=== PATIENT | male | born 1945 | race Caucasian/White ===

== ENCOUNTER 2024-12-07 09:55 | Day surgery (SDC) | payer OTHER, MEDICARE, BC ==
[2024-12-03 13:25] LABS: BASOPHILS % (AUTO) 0.7 % (0-1); EOSINOPHILS # (AUTO) 0.2 X10'3 (0-0.9); EOSINOPHILS % (AUTO) 2.8 % (0-6); HEMATOCRIT 47.9 % (42.0-52.0); HEMOGLOBIN 16.1 g/dl (14.0-17.9); LYMPHOCYTES # (AUTO) 0.9 X10'3 (1.1-4.8); MEAN CORPUSCULAR HEMOGLOBIN 32.2 PG (27.0-31.0); MEAN CORPUSCULAR HGB CONC 33.6 g/dL (33.0-36.5); MEAN CORPUSCULAR VOLUME 95.7 FL (78-98); MEAN PLATELET VOLUME 8.3 FL (7.4-10.4); MONOCYTES # (AUTO) 0.6 X10'3 (0-0.9); NEUTROPHILS % (AUTO) 74.5 % (42-75); PLATELET COUNT 175 X10'3 (140-440); RED CELL DISTRIBUTION WIDTH 14.4 % (11.5-14.5); WHITE BLOOD COUNT 6.7 X10'3 (4.5-11.0)
[2024-12-03 13:27] LABS: APTT 27 SECONDS (22-32); PROTHROMBIN TIME 10.8 SECONDS (9.0-12.0)
[2024-12-03 13:29] LABS: ALBUMIN 4.1 G/DL (3.4-5.0); ANION GAP 7 (8-16); BLOOD UREA NITROGEN 17 MG/DL (7-18); BUN/CREATININE RATIO 15.9 (10.0-20.0); CHLORIDE 108 MMOL/L (99-107); CHOL/HDL RATIO 1.6 (0.00-4.99); CHOLESTEROL 87 MG/DL (0-200); CREATININE 1.07 MG/DL (0.60-1.10); GLUCOSE 95 MG/DL (70-104); HDL CHOLESTEROL 53 MG/DL (35-60); LDL CHOLESTEROL 26 MG/DL (50-100); POTASSIUM 4.7 MMOL/L (3.5-5.1); SODIUM 141 MMOL/L (135-145); TOTAL CARBON DIOXIDE 25.6 MMOL/L (24-32); TRIGLYCERIDES 114 MG/DL (20-135); eGFR 67 ML/MIN
[~2024-12-07] VITALS: Ht 175.3 cm; Wt 72.9 kg
[2024-12-07] VITALS (8 sets, daily range): BP systolic 127–147; BP diastolic 73–90; PULSE 49–67; RESP 12–17; O2SAT 94–96
[~2024-12-07 09:55] MED LIST: ALLO100T PO; AMLO5TAB PO; ASPI-611 PO; ATEN25TA PO; ATOR20TA66 PO; LOSA-416 PO; OMEG500C PO
[2024-12-07] MEDS ORDERED: LORazepam 0.5 MG tablet PO PRN (10:10)
[2024-12-07] MEDS ORDERED: diphenhydrAMINE 25mg capsule PO PRN (10:10)
[2024-12-07] MEDS ORDERED: normal saline 1,000 ML IV SCH (10:10)
[2024-12-07] MEDS ORDERED: FERR324T PO (10:27)
[2024-12-07] MEDS ORDERED: SPIR25TA5 PO (10:27)
[2024-12-07] MEDS ORDERED: DONE10TA44 PO (10:27)
[2024-12-07] MEDS ORDERED: EVOL140P3 INJ (10:27)
[2024-12-07] MEDS ORDERED: AMLO10TA13 PO (10:27)
[2024-12-07] MEDS ORDERED: FAMO20TA8 PO (10:27)
[2024-12-07] MEDS ORDERED: LOSA100T58 PO (10:27)
[2024-12-07] MEDS ORDERED: METO-384 PO (10:27)
[2024-12-07] MEDS ORDERED: ATOR10TA70 PO (10:27)
[2024-12-07] MEDS ORDERED: FEXO-271 PO (10:27)
[2024-12-07] MEDS ORDERED: midazolam 1 mg/ML 2ml injection ONE (12:15)
[2024-12-07] MEDS ORDERED: LIDOcaine 1% 30ml preserv. free vial ONE (12:15)
[2024-12-07] MEDS ORDERED: iohexol 350MG/ML 100ml bottle IV ONE ×2 (12:15→13:31)
[2024-12-07] MEDS ORDERED: fentaNYL/PF 50MCG/1 ML 2ML syringe ONE (12:15)
[2024-12-07] MEDS ORDERED: heparin 1,000unit/ml 10ml vial 10 ML ONE (12:15)
[2024-12-07] MEDS ORDERED: iohexol 350 MG/ML 50ML vial IV ONE (13:39)
[2024-12-07] MEDS ORDERED: HYDROcodone/acetaminophen 10/325mg tab PO PRN (14:20)
[2024-12-07] MEDS ORDERED: HYDROcodone/acetaminophen 5mg/325mg tablet PO PRN (14:20)
== END 2024-12-07 16:20 | disposition home or self-care (01) ==
LOC: SSTAY O 09:55
PROVIDERS: ATTEND Student in an Organized Health Care Education/Training Program
DX: R07.9 Chest pain, unspecified (principal); I25.110 Atherosclerotic heart disease of native coronary artery with unstable angina pectoris; I25.82 Chronic total occlusion of coronary artery; Z79.899 Other long term (current) drug therapy; M10.9 Gout, unspecified; I10 Essential (primary) hypertension; I73.9 Peripheral vascular disease, unspecified; I27.20 Pulmonary hypertension, unspecified; I70.0 Atherosclerosis of aorta; G47.33 Obstructive sleep apnea (adult) (pediatric); Z95.1 Presence of aortocoronary bypass graft
CPT/HCPCS: 36415; 80048; 80061; 85025; 85610; 85730; 93005; 93459; 93567; 99152; 99153; C1760; J1644; J2003; J2250; J3010; J7030; Q9967; A6258; C1751; C1769